=== PATIENT | male | born 1995 | race Hispanic/Latino ===

== ENCOUNTER 2021-01-06 14:54 | Inpatient (IN) | payer OTHER ==
[~2021-01-06] VITALS: Ht 165.1 cm; Wt 74.6 kg
[2021-01-06 14:55] VITALS: BP 156/81
[2021-01-06] MEDS: 0.9%NACL 1000ML 2,000 ML IV SCH ×2 (15:28→15:36)
[2021-01-06] MEDS ORDERED: INSULIN HUMULIN R 100 UNIT/ML 3ML IV ONE (15:30)
[2021-01-06 15:31] LABS: BASOPHILS % (AUTO) 0.4 % (0.0-5.0); EOSINOPHILS % (AUTO) 0.2 % (0.0-8.0); HEMATOCRIT 48.9 % (42-54); MEAN CORPUSCULAR HEMOGLOBIN 32.4 pg (27.0-33.0); MEAN CORPUSCULAR HGB CONC 31.7 g/dL (32.0-36.0); MEAN CORPUSCULAR VOLUME 102.3 fL (79-99); MONOCYTES % (AUTO) 3.6 % (3.0-13.0); NEUTROPHILS % (AUTO) 89.2 % (40.0-77.0); PLATELET COUNT (AUTO) 350 K/uL (130-400); RED BLOOD CELL COUNT(AUTO) 4.78 MIL/uL (4.50-6.20); RED CELL DISTRIBUTION WIDTH 12.6 % (11.0-15.5); WHITE BLOOD COUNT (AUTO) 21.8 K/uL (4.8-10.8)
[2021-01-06 15:36] LABS: ABG BASE EXCESS -28.4 mmol/L (-2.0-3.0); ABG HCO3 2.2 mmol/L (21.0-28.0); ABG OXYGEN SATURATION 96.9 % (95.0-99.0); ABG PCO2 < 14 mmHg (35-48)
[2021-01-06 15:37] LABS: APPEARANCE,URINE Clear (CLEAR); BILIRUBIN,URINE Negative (NEGATIVE); COLOR,URINE Yellow (YELLOW); GLUCOSE, URINE (UA) >=1000 mg/dL (NEGATIVE); KETONES,URINE >=160 mg/dL (NEGATIVE); LEUKOCYTE ESTERASE ,URINE Negative (NEGATIVE); NITRATE,URINE Negative (NEGATIVE); OCCULT BLOOD,URINE Small (NEGATIVE); PROTEIN,URINE POS 1+ mg/dL (NEGATIVE); UROBILINOGEN,URINE 0.2 mg/dL (0.2-1.0)
[2021-01-06] MEDS ORDERED: SODIUM BICARB 50MEQ 50ML VIAL 100 ML ONE (15:40)
[2021-01-06 15:49] LABS: ALANINE AMINOTRANSFERASE 53 U/L (12-78); ASPARTATE AMINOTRANSFERASE 28 U/L (10-37); BILIRUBIN,TOTAL 0.5 mg/dL (0.2-1.0); CHLORIDE 96 mmol/L (101-111); GLOMERULAR FILTR. RATE CALC 43 mL/min (>60); LIPASE 467 U/L (114-286); POTASSIUM 5.8 mmol/L (3.5-5.1); SODIUM SERUM 132 mmol/L (136-145); TOTAL PROTEIN, SERUM 7.7 g/dL (6.0-8.3); UREA NITROGEN, BLOOD 15 mg/dL (7-18)
[2021-01-06 15:50] LABS: GLUCOSE,RANDOM 695 mg/dL (70-105)
[2021-01-06 15:50] LABS: RBC,URINE 0-1 /HPF (0-1)
[2021-01-06 15:51] LABS: BACTERIA,URINE Rare /HPF (None Seen); COARSE GRANULAR CASTS,URINE 0-2 /LPF (None Seen); MUCUS,URINE Rare LPF (None Seen); SQUAMOUS EPITHELIAL CELL,UR Rare /HPF (0-2); WBC,URINE 0-1 /HPF (0-1)
[2021-01-06 15:56] LABS: CARBON DIOXIDE < 5 mmol/L (21-32)
[2021-01-06 16:04] VITALS: BP 141/81
[2021-01-06] MEDS ORDERED: INSULIN REGULAR, HUMAN 3ML 100 UNIT in 0.9%NACL 100ML 99 ML IV STA ×2 (17:14)
[2021-01-06] MEDS ORDERED: INSULIN HUMULIN R 100 UNIT/ML 3ML ONE (17:23)
[2021-01-06] MEDS ORDERED: 0.9%NACL 100ML 100 ML ONE (17:25)
[2021-01-06] MEDS ORDERED: 0.9%NACL 1000ML 1,000 ML IV SCH ×2 (17:30→18:30)
[2021-01-06 18:06] VITALS: BP 153/83
[2021-01-06 18:43] LABS: ABG BASE EXCESS -24.1 mmol/L (-2.0-3.0); ABG HCO3 3.5 mmol/L (21.0-28.0); ABG OXYGEN SATURATION 97.7 % (95.0-99.0); ABG PCO2 < 14 mmHg (35-48)
[2021-01-06] MEDS ORDERED: ZOLPIDEM TARTRATE 5 MG TAB PO PRN (19:00)
[2021-01-06] MEDS ORDERED: INSULIN REGULAR, HUMAN 3ML 100 UNIT in 0.9%NACL 100ML 99 ML IV PRN ×2 (19:00)
[2021-01-06] MEDS ORDERED: DEXTROSE 5 %-0.45 % NACL 1,000 ML IV PRN ×2 (19:00)
[2021-01-06] MEDS ORDERED: POTASSIUM CHLORIDE 10MEQ/100ML 100 ML IV PRN ×2 (19:00)
[2021-01-06] MEDS ORDERED: MAGNESIUM 2GM PREMIX 50ML 50 ML IV PRN (19:00)
[2021-01-06 19:30] LABS: CHLORIDE 104 mmol/L (101-111); CREATININE 1.6 mg/dL (0.5-1.5); GLOMERULAR FILTR. RATE CALC 56 mL/min (>60); GLUCOSE,RANDOM 368 mg/dL (70-105); POTASSIUM 4.7 mmol/L (3.5-5.1); SODIUM SERUM 141 mmol/L (136-145); UREA NITROGEN, BLOOD 14 mg/dL (7-18)
[2021-01-06 19:45] LABS: CARBON DIOXIDE < 5 mmol/L (21-32)
[2021-01-06 20:20] VITALS: BP 137/87
[2021-01-06] MEDS: 0.9%NACL 1000ML 1,000 ML IV SCH (20:37)
[2021-01-06] MEDS: FAMOTIDINE 20MG VIAL IV SCH (21:11)
[2021-01-06] MEDS: ZOSYN 3.375GM+NS 50ML 50 ML IV SCH (21:11)
[2021-01-06 21:37] LABS: ABG BASE EXCESS -18.9 mmol/L (-2.0-3.0); ABG HCO3 6.1 mmol/L (21.0-28.0); ABG OXYGEN SATURATION 96.8 % (95.0-99.0); ABG PCO2 15 mmHg (35-48)
[2021-01-06 21:55] LABS: CREATININE 1.4 mg/dL (0.5-1.5); MAGNESIUM 2.4 mg/dL (1.80-2.40); POTASSIUM 4.3 mmol/L (3.5-5.1)
[2021-01-06 22:04] VITALS: BP 126/76
[2021-01-06 23:51] VITALS: BP 128/75
[2021-01-07] VITALS (9 sets, daily range): BP systolic 104–132; BP diastolic 54–84
[2021-01-07 01:41] LABS: CREATININE 1.4 mg/dL (0.5-1.5); MAGNESIUM 2.2 mg/dL (1.80-2.40); POTASSIUM 3.6 mmol/L (3.5-5.1)
[2021-01-07] MEDS ORDERED: IPRATROPIUM/ALBUTEROL SULFATE 3 ML SOLUTION IH PRN (02:00)
[2021-01-07] MEDS: ZOSYN 3.375GM+NS 50ML 50 ML IV SCH ×3 (06:49→20:37)
[2021-01-07 07:05] LABS: CREATININE 1.3 mg/dL (0.5-1.5); MAGNESIUM 2.2 mg/dL (1.80-2.40); POTASSIUM 3.1 mmol/L (3.5-5.1)
[2021-01-07] MEDS: 0.9%NACL 1000ML 1,000 ML IV SCH ×2 (08:00→18:01)
[2021-01-07] MEDS: ENOXAPARIN SODIUM 40 MG/0.4 ML SYRINGE SQ SCH (08:27)
[2021-01-07] MEDS: FAMOTIDINE 20MG VIAL IV SCH (08:27)
[2021-01-07 09:22] LABS: BASOPHILS % (AUTO) 0.2 % (0.0-5.0); EOSINOPHILS % (AUTO) 0.1 % (0.0-8.0); HEMATOCRIT 40.3 % (42-54); LYMPHOCYTES % (AUTO) 17.8 % (21.0-51.0); MEAN CORPUSCULAR HEMOGLOBIN 32.4 pg (27.0-33.0); MEAN CORPUSCULAR VOLUME 95.3 fL (79-99); MONOCYTES % (AUTO) 7.7 % (3.0-13.0); NEUTROPHILS % (AUTO) 73.9 % (40.0-77.0); PLATELET COUNT (AUTO) 191 K/uL (130-400); RED BLOOD CELL COUNT(AUTO) 4.23 MIL/uL (4.50-6.20); RED CELL DISTRIBUTION WIDTH 12.4 % (11.0-15.5); WHITE BLOOD COUNT (AUTO) 9.1 K/uL (4.8-10.8)
[2021-01-07 09:46] LABS: ABG BASE EXCESS -10.3 mmol/L (-2.0-3.0); ABG HCO3 13.2 mmol/L (21.0-28.0); ABG OXYGEN SATURATION 98.4 % (95.0-99.0); ABG PCO2 24 mmHg (35-48)
[2021-01-07] MEDS ORDERED: INSULIN GLARGINE 100 UNITS/ML 10 ML VIAL SQ SCH (10:00)
[2021-01-07] MEDS: INSULIN HUMULIN R 100 UNIT/ML 3ML SQ SCH ×4 (11:30→20:38)
[2021-01-07] MEDS ORDERED: NEUTRA-PHOS PACKET 1 EACH PO SCH (12:00)
[2021-01-07] MEDS ORDERED: FAMOTIDINE 20MG TAB PO SCH (12:30)
[2021-01-07] MEDS ORDERED: INSU100I3 SQ (19:22)
[2021-01-07] MEDS ORDERED: BENZOCAINE/MENTH/CETYLPYRD CL 1 EACH LOZENGE MM ONE (20:50)
[2021-01-07] MEDS: GUAIFENESIN SUGAR-FREE 100 MG/5 ML UDCUP PO PRN (22:46)
[2021-01-08] MEDS: 0.9%NACL 1000ML 1,000 ML IV SCH (01:06)
[2021-01-08] MEDS: BENZOCAINE/MENTH/CETYLPYRD CL 1 EACH LOZENGE MM PRN ×2 (03:17→21:02)
[2021-01-08 03:49] LABS: HEMATOCRIT 39.3 % (42-54); MEAN CORPUSCULAR HGB CONC 34.9 g/dL (32.0-36.0); MEAN CORPUSCULAR VOLUME 91.8 fL (79-99); RED BLOOD CELL COUNT(AUTO) 4.28 MIL/uL (4.50-6.20); WHITE BLOOD COUNT (AUTO) 7.1 K/uL (4.8-10.8)
[2021-01-08 04:00] VITALS: BP 131/75
[2021-01-08 04:07] LABS: CREATININE 1.1 mg/dL (0.5-1.5); PHOSPHORUS 1.3 mg/dL (2.5-4.9)
[2021-01-08 04:22] LABS: POTASSIUM 2.4 mmol/L (3.5-5.1)
[2021-01-08] MEDS ORDERED: KCL 20 MEQ ERTAB PO ONE ×2 (04:41→09:30)
[2021-01-08] MEDS ORDERED: POTASSIUM CHLORIDE 20MEQ/100ML 100 ML IV ONE (04:41)
[2021-01-08] MEDS ORDERED: LIDOCAINE HCL-MPF 1% 2ML VIAL ONE (04:42)
[2021-01-08] MEDS: GUAIFENESIN SUGAR-FREE 100 MG/5 ML UDCUP PO PRN ×3 (04:57→14:34)
[2021-01-08] MEDS: ZOSYN 3.375GM+NS 50ML 50 ML IV SCH ×3 (04:58→21:02)
[2021-01-08] MEDS ORDERED: POTASSIUM CHLORIDE 20MEQ/100ML 100 ML IV PRN (05:00)
[2021-01-08] MEDS ORDERED: POTASSIUM CHLORIDE 10% ELIXIR 20 MEQ/15 ML UDCUP PO PRN (05:00)
[2021-01-08] MEDS: INSULIN HUMULIN R 100 UNIT/ML 3ML SQ SCH ×8 (06:04→20:56)
[2021-01-08] MEDS: KCL 20 MEQ ERTAB PO PRN ×7 (06:38→23:52)
[2021-01-08] MEDS ORDERED: INSULIN GLARGINE 100 UNITS/ML 10 ML VIAL SQ SCH (07:30)
[2021-01-08 08:04] VITALS: BP 127/72
[2021-01-08] MEDS: ENOXAPARIN SODIUM 40 MG/0.4 ML SYRINGE SQ SCH (09:00)
[2021-01-08] MEDS ORDERED: FAMOTIDINE 20MG TAB PO ONE (09:00)
[2021-01-08] MEDS ORDERED: POTASSIUM PHOSPHATE 0 MMOL in 0.9% NACL 250ML 250 ML IV SCH (09:30)
[2021-01-08] MEDS: LIDOCAINE HCL-MPF 1% 2ML VIAL IV PRN ×2 (09:59→13:31)
[2021-01-08] MEDS ORDERED: POTASSIUM PHOS 15 mMOL+NS250ML 250 ML IV PRN (10:00)
[2021-01-08 11:04] VITALS: BP 129/85
[2021-01-08 14:16] LABS: CREATININE 1.2 mg/dL (0.5-1.5); MAGNESIUM 2.1 mg/dL (1.80-2.40); POTASSIUM 3.1 mmol/L (3.5-5.1)
[2021-01-08 16:04] VITALS: BP 132/79
[2021-01-08 20:35] VITALS: BP 126/70
[2021-01-08 23:49] VITALS: BP 137/79
[2021-01-09] MEDS: GUAIFENESIN SUGAR-FREE 100 MG/5 ML UDCUP PO PRN (00:57)
[2021-01-09 04:08] VITALS: BP 131/69
[2021-01-09] MEDS: ZOSYN 3.375GM+NS 50ML 50 ML IV SCH (05:05)
[2021-01-09 06:19] LABS: BASOPHILS % (AUTO) 0.7 % (0.0-5.0); EOSINOPHILS % (AUTO) 3.1 % (0.0-8.0); LYMPHOCYTES % (AUTO) 43.8 % (21.0-51.0); MEAN CORPUSCULAR HEMOGLOBIN 31.8 pg (27.0-33.0); MEAN CORPUSCULAR HGB CONC 34.9 g/dL (32.0-36.0); MEAN CORPUSCULAR VOLUME 91.1 fL (79-99); MONOCYTES % (AUTO) 6.7 % (3.0-13.0); NEUTROPHILS % (AUTO) 45.5 % (40.0-77.0); PLATELET COUNT (AUTO) 158 K/uL (130-400); RED BLOOD CELL COUNT(AUTO) 4.72 MIL/uL (4.50-6.20); RED CELL DISTRIBUTION WIDTH 11.6 % (11.0-15.5); WHITE BLOOD COUNT (AUTO) 4.5 K/uL (4.8-10.8)
[2021-01-09 06:33] LABS: CREATININE 0.9 mg/dL (0.5-1.5); PHOSPHORUS 2.7 mg/dL (2.5-4.9)
[2021-01-09] MEDS: INSULIN HUMULIN R 100 UNIT/ML 3ML SQ SCH ×6 (06:39→16:11)
[2021-01-09] MEDS ORDERED: INSULIN GLARGINE 100 UNITS/ML 10 ML VIAL SQ SCH (07:00)
[2021-01-09 08:00] VITALS: BP 131/74
[2021-01-09] MEDS: ENOXAPARIN SODIUM 40 MG/0.4 ML SYRINGE SQ SCH (08:02)
[2021-01-09 12:00] VITALS: BP 124/76
[2021-01-09 16:00] VITALS: BP 127/77
== END 2021-01-09 19:30 | disposition home or self-care (01) | DRG 871 ==
LOC: EDH 14:54 → EDHIP 14:55 → 4AH 01-07 19:12
PROVIDERS: ADMIT Internal Medicine; ATTEND Internal Medicine
PROC: 5A09357 Assistance with Respiratory Ventilation, Less than 24 Consecutive Hours, Continuous Positive Airway Pressure (ICD-10-PCS; principal; 2021-01-06)
DX: A41.9 Sepsis, unspecified organism (principal); E10.10 Type 1 diabetes mellitus with ketoacidosis without coma; N17.0 Acute kidney failure with tubular necrosis; E87.1 Hypo-osmolality and hyponatremia; E86.0 Dehydration; E86.1 Hypovolemia; E87.5 Hyperkalemia; E87.6 Hypokalemia; Z79.4 Long term (current) use of insulin; Z20.822 Contact with and (suspected) exposure to COVID-19
CPT/HCPCS: 36415; 36600; 71045; 80048; 80053; 81001; 82010; 82435; 82803; 82947; 82948; 83605; 83690; 83735; 83880; 83930; 84100; 84132; 84145; 84295; 85018; 85025; 85027; 87040; 87635; 94660; C9803; G0378; J1650; J1815; J2543; J3480; J3490; J7030